=== PATIENT | male | born 1965 | race Caucasian/White ===

== ENCOUNTER 2017-07-24 23:41 | Emergency (ER) | payer MEDICARE ==
[2017-07-24] MEDS ORDERED: Ondansetron 4 MG Tab.DIS PO ONE (23:43)
[2017-07-24] MEDS ORDERED: Lactated Ringers 1,000 ML IV ONE (23:52)
[2017-07-24] MEDS ORDERED: Ketorolac 30 MG/ML SDV IVPUSH ONE (23:53)
[2017-07-24] MEDS ORDERED: Morphine 4 MG/ML Syringe IVPUSH ONE (23:53)
[2017-07-24] MEDS ORDERED: Metoclopramide 10 MG/2 ML SDV IVPUSH ONE (23:53)
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
[2017-07-25] MEDS ORDERED: Morphine 4 MG/ML Syringe IVPUSH ONE (00:31)
[2017-07-25] MEDS ORDERED: Iopamidol 612 MG/ML 150 ML Bottle IV STA (00:51)
[2017-07-25] MEDS ORDERED: Sodium Chloride 0.9% 80 ML IV STA (00:51)
[2017-07-25] MEDS ORDERED: Ondansetron 4 MG/2 ML SDV IVPUSH ONE (01:01)
[2017-07-25] MEDS ORDERED: Lactated Ringers 1,000 ML IV ONE (01:25)
== END 2017-07-25 02:51 | disposition home or self-care (01) ==
LOC: JP.ED 23:41
DX: G43.A0 Cyclical vomiting, in migraine, not intractable (principal); F12.10 Cannabis abuse, uncomplicated; R10.32 Left lower quadrant pain; G89.29 Other chronic pain; Z79.899 Other long term (current) drug therapy
CPT/HCPCS: 36415; 74177; 80048; 85027; 86140; 96361; 96374; 96375; 99284; A9270; J1885; J2270; J2765; J7030; J7120

== ENCOUNTER 2017-07-26 14:57 | Emergency (ER) | payer MEDICARE ==
[2017-07-26] MEDS ORDERED: Metoclopramide 10 MG/2 ML SDV IVPUSH ONE (16:23)
[2017-07-26] MEDS ORDERED: Lactated Ringers 1,000 ML IV ONE (16:23)
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
[2017-07-26] MEDS ORDERED: NS + KCl 20mEq/L 1,000 ML IV SCH (17:30)
[2017-07-26] MEDS ORDERED: Ondansetron 4 MG/2 ML SDV IVPUSH ONE ×2 (17:38→18:13)
[2017-07-26] MEDS ORDERED: LORazepam 2 MG/ML SDV IVPUSH ONE (18:56)
[2017-07-26] MEDS ORDERED: Sodium Chloride 0.9% 1,000 ML IV SCH (19:00)
[2017-07-26] MEDS ORDERED: Morphine 2 MG/ML Syringe IVPUSH ONE ×2 (19:10→20:21)
[2017-07-26] MEDS ORDERED: Ketorolac 30 MG/ML SDV IVPUSH ONE (19:10)
[2017-07-26] MEDS ORDERED: Ondansetron 4 MG Tab.DIS PO ONE (20:28)
[2017-07-26] MEDS ORDERED: Acetaminophen/oxyCODONE 325-5 MG Tab PO ONE (20:45)
== END 2017-07-26 21:05 | disposition home or self-care (01) ==
LOC: JP.ED 14:57
DX: G43.A0 Cyclical vomiting, in migraine, not intractable (principal); E86.0 Dehydration; F12.10 Cannabis abuse, uncomplicated; K21.9 Gastro-esophageal reflux disease without esophagitis; Z79.899 Other long term (current) drug therapy
CPT/HCPCS: 36415; 80048; 83735; 96361; 96374; 96375; 96376; 99284; A9270; J1885; J2060; J2270; J2405; J2765; J3480; J7040; J7120

== ENCOUNTER 2018-07-24 16:17 | Emergency (ER) | payer OTHER ==
[2018-07-24] MEDS ORDERED: Lactated Ringers 1,000 ML IV ONE (16:25)
[2018-07-24] MEDS ORDERED: Morphine 4 MG/ML Syringe IVPUSH ONE (16:26)
[2018-07-24] MEDS ORDERED: Ondansetron 4 MG/2 ML SDV IVPUSH ONE (16:26)
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
[2018-07-24] MEDS ORDERED: Ketorolac 30 MG/ML SDV IVPUSH ONE (17:35)
[2018-07-24] MEDS ORDERED: Prochlorperazine 10 MG/2 ML SDV IVPUSH ONE (17:56)
[2018-07-24] MEDS ORDERED: diphenhydrAMINE 50 MG/ML SDV IVPUSH ONE (17:56)
== END 2018-07-24 20:29 | disposition home or self-care (01) ==
LOC: JP.ED 16:17
DX: G43.A0 Cyclical vomiting, in migraine, not intractable (principal); K21.9 Gastro-esophageal reflux disease without esophagitis; F41.9 Anxiety disorder, unspecified; F32.9 Major depressive disorder, single episode, unspecified; Z90.49 Acquired absence of other specified parts of digestive tract; Z79.899 Other long term (current) drug therapy
CPT/HCPCS: 36415; 80048; 96361; 96374; 96375; 99284; J0780; J1200; J1885; J2270; J2405; J7120

== ENCOUNTER 2020-05-07 15:24 | Emergency (ER) | payer MEDICARE, OTHER ==
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
--- NOTE | 2020-05-08 09:12 | CR ---
CHEST: 2 view CLINICAL HISTORY:Dyspnea COMPARISON:2009 FINDINGS: The heart size, pulmonary vascularity and hilar structures are normal. No infiltrate effusion or pneumothorax is seen. IMPRESSION: No acute cardiopulmonary process.
== END 2020-05-07 17:01 | disposition home or self-care (01) ==
LOC: JP.ED 15:24
DX: K22.4 Dyskinesia of esophagus (principal); I10 Essential (primary) hypertension; I25.2 Old myocardial infarction; K21.9 Gastro-esophageal reflux disease without esophagitis; F41.9 Anxiety disorder, unspecified; F32.9 Major depressive disorder, single episode, unspecified; Z79.82 Long term (current) use of aspirin; Z79.899 Other long term (current) drug therapy
CPT/HCPCS: 36415; 71046; 71046-26; 80048; 84484; 85025; 93005; 93010; 99283; 99285-25

== ENCOUNTER 2021-09-06 12:33 | Observation (INO) | payer OTHER, MEDICARE ==
[2021-09-06] MEDS ORDERED: Ondansetron 4 MG/2 ML SDV ONE (12:49)
[2021-09-06] MEDS ORDERED: Morphine 2 MG/ML SYRINGE ONE (12:49)
[2021-09-06] MEDS ORDERED: LORazepam 2 MG/ML SDV IVPUSH ONE (13:13)
[2021-09-06] MEDS ORDERED: Sodium Chloride 0.9% 1,000 ML IV SCH ×3 (13:15→16:00)
[2021-09-06] MEDS ORDERED: Morphine 2 MG/ML SYRINGE IVPUSH ONE ×2 (13:17→15:54)
[2021-09-06] MEDS ORDERED: Ondansetron 4 MG/2 ML SDV IVPUSH ONE ×2 (13:29→15:55)
[2021-09-06] MEDS ORDERED: Iopamidol 612 MG/ML 100 ML Bottle IV PRN (14:21)
[2021-09-06] MEDS ORDERED: Sodium Chloride 0.9% 50 ML IV SCH (14:30)
[2021-09-06] MEDS ORDERED: Sodium Chloride 0.9% 10 ML Syringe FLUSH PRN (16:58)
[2021-09-06] MEDS ORDERED: oxyCODONE 5 MG Tab PO PRN (16:58)
[2021-09-06] MEDS ORDERED: Ondansetron 4 MG/2 ML SDV IV PRN (16:58)
[2021-09-06] MEDS ORDERED: Acetaminophen 325 MG Tab PO PRN (16:58)
[2021-09-06] MEDS ORDERED: metroNIDAZOLE 250 MG Tab PO ONE (17:15)
[2021-09-06] MEDS: Pantoprazole 40 MG Tab.CR PO SCH (18:32)
[2021-09-06] MEDS: LORazepam 2 MG/ML SDV IVPUSH PRN ×2 (18:32→20:50)
[2021-09-06 20:55] LABS: CORONAVIRUS COVID-19 NAA NEGATIVE (NEGATIVE)
[2021-09-06] MEDS: metroNIDAZOLE 250 MG Tab PO SCH (21:33)
[2021-09-06] MEDS: Ciprofloxacin 500 MG Tab PO SCH (21:33)
[2021-09-06] MEDS: Sodium Chloride 0.9% 1,000 ML IV SCH (23:40)
[2021-09-07] MEDS: LORazepam 2 MG/ML SDV IVPUSH PRN ×2 (00:11→03:31)
[2021-09-07] MEDS: metroNIDAZOLE 250 MG Tab PO SCH ×2 (07:17→14:15)
[2021-09-07] MEDS: Pantoprazole 40 MG Tab.CR PO SCH (07:17)
[2021-09-07] MEDS: Sodium Chloride 0.9% 1,000 ML IV SCH (07:48)
[2021-09-07] MEDS ORDERED: Clopidogrel 75 MG **PTOM PO SCH (09:00)
[2021-09-07] MEDS ORDERED: ASPIRIN 81 MG PO SCH (09:00)
[2021-09-07] MEDS ORDERED: Non-Formulary Medication 1 Each (Fluoxetine [Prozac] 10 MG Tablet) PO SCH (09:00)
[2021-09-07] MEDS ORDERED: Enoxaparin 40 MG/0.4 ML Syringe SUBCUT SCH (09:00)
[2021-09-07] MEDS ORDERED: FLUoxetine 20 MG Cap PO SCH (09:00)
[2021-09-07] MEDS ORDERED: Metoprolol Succinate 25 MG Tab.ER PO SCH (09:00)
[2021-09-07] MEDS ORDERED: Metoprolol Succinate 50 MG **PTOM PO SCH (10:00)
[2021-09-07] MEDS ORDERED: FLUOXETINE 40MG **PTOM PO SCH (10:00)
[2021-09-07] MEDS: Ciprofloxacin 500 MG Tab PO SCH (10:17)
== END 2021-09-07 15:00 | disposition home or self-care (01) ==
LOC: JP.ED 12:33 → JP.MS 15:54
PROVIDERS: ADMIT Hospitalist; ATTEND Hospitalist
DX: E86.0 Dehydration (principal); R11.2 Nausea with vomiting, unspecified; R10.9 Unspecified abdominal pain; I25.2 Old myocardial infarction; I10 Essential (primary) hypertension; K21.9 Gastro-esophageal reflux disease without esophagitis; F41.9 Anxiety disorder, unspecified; F32.A Depression, unspecified; I25.10 Atherosclerotic heart disease of native coronary artery without angina pectoris; G89.29 Other chronic pain; F12.10 Cannabis abuse, uncomplicated; Z95.5 Presence of coronary angioplasty implant and graft; Z79.82 Long term (current) use of aspirin; Z79.899 Other long term (current) drug therapy; Z20.822 Contact with and (suspected) exposure to COVID-19
CPT/HCPCS: 0241U; 36415; 74177; 80048; 80053; 81001; 83605; 84484; 85025; 86140; 87040; 93005; 96361; 96374; 96375; 99285-25; A9270-GY; J1650; J2060; J2270; J2405; J3490; J7030; Q9967

== ENCOUNTER 2021-09-08 11:24 | Emergency (ER) | payer MEDICARE, OTHER ==
[2021-09-08] MEDS ORDERED: HYDROmorphone 1 MG/ML Syringe IM ONE (12:34)
== END 2021-09-08 15:00 | disposition home or self-care (01) ==
LOC: JP.ED 11:24
DX: R11.2 Nausea with vomiting, unspecified (principal); K21.9 Gastro-esophageal reflux disease without esophagitis; I10 Essential (primary) hypertension; I25.2 Old myocardial infarction; Z79.82 Long term (current) use of aspirin; Z79.899 Other long term (current) drug therapy
CPT/HCPCS: 96372; 99282; 99283; J1170; J1790

== ENCOUNTER 2021-12-03 08:23 | Day surgery (SDC) | payer MEDICARE, OTHER ==
[~2021-12-03 08:23] MED LIST: Lactated Ringers 1,000 ML IV SCH
[2021-12-03] MEDS ORDERED: Lactated Ringers 1,000 ML IV SCH (09:00)
[2021-12-03] MEDS ORDERED: Midazolam 1 MG/ML 2 ML SDV ONE (09:09)
[2021-12-03] MEDS ORDERED: fentaNYL 100 MCG/2 ML SDV ONE (09:09)
[2021-12-03] MEDS ORDERED: Propofol 200 MG/20 ML SDV ONE ×2 (09:09→10:28)
== END 2021-12-03 11:55 | disposition home or self-care (01) ==
LOC: JP.SDS 08:23
PROVIDERS: ATTEND Family Medicine
DX: K57.31 Diverticulosis of large intestine without perforation or abscess with bleeding (principal); I10 Essential (primary) hypertension; E78.5 Hyperlipidemia, unspecified; I25.10 Atherosclerotic heart disease of native coronary artery without angina pectoris; K21.9 Gastro-esophageal reflux disease without esophagitis; Z79.810 Long term (current) use of selective estrogen receptor modulators (SERMs); Z79.891 Long term (current) use of opiate analgesic; Z79.899 Other long term (current) drug therapy; Z87.891 Personal history of nicotine dependence; Z98.890 Other specified postprocedural states; Z79.02 Long term (current) use of antithrombotics/antiplatelets; Z90.49 Acquired absence of other specified parts of digestive tract
CPT/HCPCS: 45378; J2250; J2704; J3010; J7120

== ENCOUNTER 2023-12-30 21:08 | Emergency (ER) | payer MEDICARE, OTHER | END 2023-12-30 22:37 | disposition home or self-care (01) | LOC: JP.ED 21:08 | DX: K59.00 Constipation, unspecified (principal); I10 Essential (primary) hypertension; E78.00 Pure hypercholesterolemia, unspecified; I25.2 Old myocardial infarction; Z95.5 Presence of coronary angioplasty implant and graft; K21.9 Gastro-esophageal reflux disease without esophagitis; Z90.49 Acquired absence of other specified parts of digestive tract; Z79.82 Long term (current) use of aspirin; Z79.899 Other long term (current) drug therapy | CPT/HCPCS: 99284 ==